=== PATIENT | female | born 1960 | race Caucasian/White ===

== ENCOUNTER 2018-05-17 07:47 | Day surgery (SDC) | payer OTHER ==
[2018-05-17] MEDS ORDERED: MIDAZOLAM 1 MG/ML 2 ML INJ ×3 (09:50→09:51)
[2018-05-17] MEDS ORDERED: FENTAnyl 50 MCG/ML VIAL (09:51)
== END 2018-05-17 11:32 | disposition home or self-care (01) ==
LOC: GIL 07:47
DX: Z12.11 Encounter for screening for malignant neoplasm of colon (principal); K29.50 Unspecified chronic gastritis without bleeding; K57.90 Diverticulosis of intestine, part unspecified, without perforation or abscess without bleeding; K64.8 Other hemorrhoids
CPT/HCPCS: 43239; 88305; 88312